=== PATIENT | female | born 1985 | race Caucasian/White ===

== ENCOUNTER 2016-11-23 17:37 | Emergency (ER) | payer SELFPAY ==
[2016-11-23] MEDS ORDERED: Adacel Vial IM ONE ×2 (18:17→19:34)
[2016-11-23] MEDS ORDERED: MOTRIN 600 MG PO ONE (18:21)
[2016-11-23] MEDS ORDERED: MOTRIN 600 MG ONE (18:28)
--- NOTE | 2016-11-23 18:56 | ERPHSYRPT ---
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 NO BLEEDING AT PRESENT. RADIAL PULSE PRESENT. Physician History: CC; left thumb cut hx: 31 y/o healthy patient recently moved here. 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 She has a small piece of skin removed. No other injuries. Needs tetanus. No other injuries. Occurred: just prior to arrival Allergies/Adverse Reactions: acetaminophen [From Vicodin] Allergy (Verified 11/23/16 17:56) hydrocodone [From Vicodin] Allergy (Verified 11/23/16 17:56) promethazine [From Phenergan] Allergy (Verified 11/23/16 17:56) Home Medications: No Home Meds 1 ea UD 11/23/16 [History] Hx Tetanus, Diphtheria Vaccination/Date Given: No Hx Influenza Vaccination/Date Given: No Hx Pneumococcal Vaccination/Date Given: No Immunizations Up to Date: No - Review of Systems Constitutional: No Symptoms Neurological: No Focal Weakness, No Parasthesia - Past Medical History Pertinent Past Medical History: No - Past Surgical History Past Surgical History: Yes Gastrointestinal: Appendectomy, Cholecystectomy Other Surgical History: LIVER BIOPSY. RT FALL TUBE - Social History Smoking Status: Current every day smoker Exposure to second hand smoke: Yes Drug Use: none Patient Lives Alone: No - Female History Hx Last Menstrual Period: 1 WEEK - Nursing Vital Signs Nursing Vital Signs: Initial Vital Signs Temperature 98.5 F Temperature Source Oral Pulse Rate 80 Respiratory Rate 18 Blood Pressure [Right Arm] 116/88 Pain Intensity 9 - Physical Exam General Appearance: alert Eyes, Ears, Nose, Throat Exam: moist mucous membranes Cardiovascular/Respiratory Exam: regular rate/rhythm Neuro/Tendon Exam: normal sensation, normal motor functions Mental Status Exam: alert, oriented x 3, cooperative Skin Exam: warm, dry, other (small superficial skin avulsion left distal thumb < 1cm square with no bony involvement, no FB, and no nail involvement. Some bleeding oozing) - Course Nursing assessment & vital signs reviewed: Yes Ordered Tests: Active Orders 24 hr Category Date Time Status Wound Care STAT Care 11/23/16 18:17 Active Medication Summary Discontinued Medications Generic Name Dose Route Start Last Admin Trade Name Freq PRN Reason Stop Dose Admin Diphtheria/Tetanus/Acell Pertussis 0.5 ml 11/23/16 18:17 11/23/16 18:26 Adacel Vial IM 11/23/16 18:18 0.5 ml .ONCE ONE Administration Ibuprofen 600 mg 11/23/16 18:21 11/23/16 18:33 Motrin 600 Mg PO 11/23/16 18:22 600 mg STAT ONE Administration Ibuprofen Confirm 11/23/16 18:28 Motrin 600 Mg Administered 11/23/16 18:29 Dose 600 mg .ROUTE .STK-MED ONE - Progress Progress Note: 11/23/16 18:53 surgicel gauze placed after cleansing. Wound instr given. Counseled pt/family regarding: diagnosis, need for follow-up - Departure Time of Disposition: 18:54 Departure Disposition: Home Clinical Impression: Avulsion of skin of left thumb Qualifiers: Encounter type: initial encounter Qualified Code(s): S61.002A - Unspecified open wound of left thumb without damage to nail, initial encounter Condition: Stable Critical Care Time: No Referrals: DOCTOR,NO FAMILY [Primary Care Provider] - Instructions: Laceration Repair -- Finger Additional Instructions: LACERATION CARE 1. Do not use peroxide, merthiolate, alcohol, or betadine. 2. Keep wound clean and dry. 3. Change dressing if it becomes wet or soiled. 4. If you must work, wear protective covering. 5. You may return to the emergency department or see your family physician for suture removal. 6. See your family physician or return to the emergency department for any of the following signs or symptoms: A. Redness B. Swelling C. Discolored drainage D. Red streaks E. Elevated temperature F. Other signs of infection Hold pressure for any bleeding. Keep clean and dry.
[2016-11-23 19:12] VITALS: BP 115/70; PULSE 77
== END 2016-11-23 19:05 | disposition home or self-care (01) ==
LOC: ED 17:37
DX: S61.002A Unspecified open wound of left thumb without damage to nail, initial encounter (principal); W26.0XXA Contact with knife, initial encounter; Y93.G1 Activity, food preparation and clean up
CPT/HCPCS: 90471; 90715; 99284; A9270-GY

== ENCOUNTER 2018-06-12 10:24 | Emergency (ER) | payer SELFPAY ==
[2018-06-12 10:55] VITALS: BP 101/75; PULSE 93; O2SAT 98
--- NOTE | 2018-06-12 11:19 | ERPHSYRPT ---
- History of Present Illness Time Seen by Provider: 06/12/18 10:54 Source: patient Exam Limitations: no limitations Patient Subjective Stated Complaint: here for cough and runny nose for a couple. chest pain when cough, vomited x 2 Triage Nursing Assessment: pt alert, resp easy, skin w/d/p. no edema , has dry cough Physician History: Patient arrives with complaint of fever cough chest congestion 2 days pain in the chest with coughing Past medical history negative Past surgical history appendectomy, cholecystectomy, liver biopsy, right fallopian tube removed Social history positive tobacco use Timing/Duration: yesterday Severity: moderate Modifying Factors: Improves With: nothing Associated Symptoms: cough, fever, other (pain in chest with coughin), No nausea , No vomiting, No abdominal pain, No shortness of breath, No heartburn, No diaphoresis, No chills, No chest pain, No headaches, No loss of appetite, No malaise, No rash, No syncope, No seizure, No weakness Allergies/Adverse Reactions: acetaminophen [From Vicodin] Allergy (Verified 06/12/18 10:47) hydrocodone [From Vicodin] Allergy (Verified 06/12/18 10:47) promethazine [From Phenergan] Allergy (Verified 06/12/18 10:47) Home Medications: No Home Meds [No Home Meds] 1 mk BRE 11/23/16 [History] Hx Tetanus, Diphtheria Vaccination/Date Given: No Hx Influenza Vaccination/Date Given: Yes Hx Pneumococcal Vaccination/Date Given: No Immunizations Up to Date: Yes - Review of Systems Constitutional: Fever, No Chills, No Fatigue, No Lethargy, No Malaise, No Night Sweats, No Weakness, No Weight Loss Eyes: No Symptoms Ears, Nose, & Throat: No Symptoms Respiratory: Cough, Other (Pain in chest with couging), No No Symptoms, No Cyanosis, No Dyspnea, No Dyspnea on Exertion (LYNN), No Stridor, No Wheezing Cardiac: Chest Pain (Pain in chest with coughing), No Edema, No Palpitations, No Syncope, No Orthopnea, No PND, No Other Abdominal/Gastrointestinal: No Abdominal Pain, No Nausea, No Vomiting, No Diarrhea, No Constipation, No Hematemesis, No Hematochezia, No Melena, No Dysphagia, No Appetite Changes Genitourinary Symptoms: No Dysuria Musculoskeletal: No Back Pain, No Neck Pain Skin: No Rash Neurological: No Dizziness, No Focal Weakness, No Sensory Changes Psychological: No Symptoms Endocrine: No Symptoms All Other Systems: Reviewed and Negative - Past Medical History Pertinent Past Medical History: No - Past Surgical History Past Surgical History: Yes Gastrointestinal: Appendectomy, Cholecystectomy Other Surgical History: LIVER BIOPSY. RT FALL TUBE - Social History Smoking Status: Current every day smoker Exposure to second hand smoke: Yes Drug Use: none Patient Lives Alone: No - Female History Hx Last Menstrual Period: 2 weks Hx Now: No - Nursing Vital Signs Nursing Vital Signs: Initial Vital Signs Temperature 98.8 F 06/12/18 10:48 Pulse Rate 93 H 06/12/18 10:48 Respiratory Rate 16 06/12/18 10:48 Blood Pressure 101/75 06/12/18 10:48 O2 Sat by Pulse Oximetry 98 06/12/18 10:48 Pain Scale Pain Intensity 7 - Physical Exam General Appearance: mild distress Eye Exam: PERRL/EOMI, eyes nml inspection Ears, Nose, Throat Exam: normal ENT inspection, TMs normal, pharynx normal, moist mucous membranes, pharyngeal erythema Neck Exam: normal inspection, non-tender, supple, full range of motion Respiratory Exam: normal breath sounds, lungs clear, No respiratory distress Cardiovascular Exam: regular rate/rhythm, normal heart sounds, normal peripheral pulses Gastrointestinal/Abdomen Exam: soft, normal bowel sounds, No tenderness, No mass Back Exam: normal inspection, normal range of motion, No CVA tenderness, No vertebral tenderness Extremity Exam: normal inspection, normal range of motion, pelvis stable Neurologic Exam: alert, oriented x 3, cooperative, manager placement II-XII nml as tested, normal mood/affect, nml cerebellar function, nml station & gait, sensation nml, No motor deficits Skin Exam: normal color, warm, dry, No rash SpO2 Interpretation: normal (98%) SpO2: 98 Oxygen Delivery: Room Air - Course Nursing assessment & vital signs reviewed: Yes - Radiology Exams Chest X-ray Interpretation: Discussed w/ radiologist (Chest x-ray: Impression normal heart, lungs, and bony thorax) Ordered Tests: Active Orders 24 hr Category Date Time Status CHEST 1 VIEW (PORTABLE) Stat Exams 06/12/18 10:53 Completed - Progress Progress: improved Progress Note: 06/12/18 11:36 32-year-old white female arrives with complaint of fever cough chest congestion symptoms since yesterday. Patient's chest x-ray is unremarkable. Patient also with the erythematous throat. Will place patient on Zithromax Z-Kahlil. Patient return home plenty of fluids. Diagnosis bronchitis, pharyngitis. - Departure Time of Disposition: 11:37 Departure Disposition: Home Clinical Impression: Bronchitis Pharyngitis Qualifiers: Pharyngitis/tonsillitis etiology: unspecified etiology Qualified Code(s): J02.9 - Acute pharyngitis, unspecified Condition: Fair Critical Care Time: No Referrals: DOCTOR,NO FAMILY [Primary Care Provider] - Instructions: Cough, Adult (DC) Additional Instructions: Return home. Plenty of fluids. Tylenol every 4 hours as needed for temperature greater than 100.5 or pain. Zithromax Z-KAHLIL as directed. Follow-up with your family Dr. symptoms are worse, nobetter. 48 hours, or persist longer than one week. Return for acute distress or for severe symptoms. quit smoking. Prescriptions: Azithromycin 250 mg [Zithromax 250 MG TABLET] 0 mg PO ZPACK #6 tablet
--- NOTE | 2018-06-12 11:22 | XRAY ---
Indication: Cough and congestion. Comparison: None Portable chest demonstrates normal heart, lungs, and bony thorax.
== END 2018-06-12 11:50 | disposition home or self-care (01) ==
LOC: ED 10:24
DX: J40 Bronchitis, not specified as acute or chronic (principal); J02.9 Acute pharyngitis, unspecified
CPT/HCPCS: 71045; 99283

== ENCOUNTER 2020-03-09 12:22 | Day surgery (SDC) | payer OTHER ==
[~2020-03-09 12:22] MED LIST: DIPRIVAN 200 MG/20 ML IV ONE; Ketamine HCl 50 MG/ML ONE
[2020-03-09] MEDS ORDERED: Depo-Medrol 40 MG/ML IM ONE (12:23)
[2020-03-09] MEDS ORDERED: Xylocaine 1% Vial 30 ML PF IJ ONE (12:23)
[2020-03-09] MEDS ORDERED: Sodium Chloride 0.9(Preservative Free) 10 ML IJ ONE (12:23)
[2020-03-09] MEDS ORDERED: TORAdol 30 mg Injection ONE (14:50)
[2020-03-09] MEDS ORDERED: Lactated Ringers 1,000 ML IV ONE (15:52)
--- NOTE | 2020-03-09 16:21 | XRAY ---
Indication: Lumbar ESME. Intraoperative fluoroscopy was provided for 19 seconds. 3 digital spot images submitted for interpretation demonstrates posterior midline needle tip projecting just posterior to the L5 segment superiorly. Small amount of contrast injected for needle tip placement. Correlate with intraoperative findings/report.
--- NOTE | 2020-03-09 16:28 | XRAY ---
19 seconds fluoroscopy time in surgery for lumbar ESME.
== END 2020-03-09 14:59 | disposition home or self-care (01) ==
LOC: SDC-PAIN 12:22
PROVIDERS: ATTEND Psychiatry & Neurology Pain Medicine
DX: M54.16 Radiculopathy, lumbar region (principal); E06.3 Autoimmune thyroiditis; K21.9 Gastro-esophageal reflux disease without esophagitis; Z79.899 Other long term (current) drug therapy
CPT/HCPCS: 62321; 72100; 77003; 84703; J1030; J1885; J2001; J2704; Q9966

== ENCOUNTER 2020-09-19 08:26 | Day surgery (SDC) | payer OTHER ==
[2020-09-19] MEDS ORDERED: Lactated Ringers 1,000 ML IV ONE (08:43)
[2020-09-19 08:47] VITALS: O2SAT 99
[2020-09-19] MEDS: Lactated Ringers 1,000 ML IV SCH (08:49)
--- NOTE | 2020-09-19 08:53 | HP ---
AMENDED REPORT: DATE OF SURGERY: 09/19/2020 HISTORY OF PRESENT ILLNESS: The patient is a 34 year-old had some aches and pains in the tailbone area. There is no obvious pilonidal cyst developing at this time. CT scan reviewed with the patient and not showing anything obvious in question of her tailbone issue. It showed some constipation. No obvious cyst to excise. Dr. Deonte Rubio also saw her and saw no cyst or nodule once again. The best option for the patient with the pain we will consider colonoscopy to rule out any intracolonic referred pain etiology. If negative may need pain specialist. PAST MEDICAL HISTORY: Arthritis. PAST SURGICAL HISTORY: Carpal tunnel release in the past. Appendectomy in the past. Bone graft in the past. MEDICATIONS: Levothyroxine. ALLERGIES: PHENERGAN. ABILIFY. FAMILY HISTORY: Heart disease, cancer. SOCIAL HISTORY: No smoking or alcohol abuse. REVIEW OF SYSTEMS: Fourteen systems reviewed. No chest pain or palpitations. Other systems negative or noncontributory as above and per preadmission questionnaire. PHYSICAL EXAMINATION: GENERAL: No acute distress. HEENT: Sclerae nonicteric. NECK: No JVD. CHEST: Clear to auscultation. CVS: Regular rate and rhythm. ABDOMEN: Soft. No peritoneal signs. EXTREMITIES: No significant edema. NEURO: Alert, oriented, moving extremities symmetrically. : In the pilonidal area there is a vague denser area just above the pilonidal crease but on exam with Dr. Deonte Rubio and myself, this does not appear to be an obvious cyst that is not in need of excision at this point. There is nothing showing up in this area on the CT scan. IMPRESSION: She complains of aches over the tailbone area. Since she is having persistent symptoms, some persistent aches and pains over the tailbone area. The patient given options and prefers to go ahead and proceed with colonoscopy at this point. She was explained the risks and benefits in detail but not limited to bleeding or infection, risk of bowel injury or perforation possibly requiring open procedure, risk of missed or nondiagnosis or incomplete exam possibly requiring barium enema, other studies or procedures, general risk of anesthesia or sedation, risk of bowel prep, postoperative risk of nausea or cramping. There is a real possibility may not be able to differentiate the etiology of her aches and pains. She may still need to see a pain specialist, obtain MRI or other work up or need other specialist. She agreed to the plan, will proceed with outpatient follow up colonoscopy under MAC anesthesia.
[2020-09-19] MEDS ORDERED: DIPRIVAN 200 MG/20 ML IV ONE ×2 (10:13→10:24)
[2020-09-19] MEDS ORDERED: Versed 2 MG/2 ML Injection ONE (10:13)
[2020-09-19 11:26] VITALS: BP 110/78; PULSE 84
--- NOTE | 2020-09-19 13:12 | OP ---
SURGERY DATE/TIME: 09/19/2020 1013 PREOPERATIVE DIAGNOSIS: History of persistent deep pilonidal area pain with fairly unremarkable CT scan and physical exam, need for colonoscopy to rule out colorectal etiology with referred pain. POSTOPERATIVE DIAGNOSES: 1) ASA Class II. 2) Fair bowel prep. 3) Few small diverticula. 4) Minimal internal hemorrhoids. 5) Fair bowel prep. 6) Withdrawal time 8 minutes. PROCEDURES: 1) Colonoscopy to terminal ileum. 2) Retrograde ileoscopy. 3) Random ileocolon and rectal biopsy to evaluate for microscopic ileitis, microscopic colitis or microscopic proctitis. SURGEON: Dr. Juan R Mina. ANESTHESIA: MAC. ESTIMATED BLOOD LOSS: Minimal. INDICATIONS: As noted above. Risks and benefits explained in detail but not limited to and consent obtained. DESCRIPTION OF PROCEDURE AND FINDINGS: The patient is taken to the operating room. MAC anesthesia introduced. After official time out and no disagreement with planned procedure, digital rectal exam did not reveal any rectal masses. He did have some minimal internal hemorrhoids. Video colonoscope inserted and passed up through the slightly tortuous sigmoid, descending, transverse and ascending colon with external pressure around to the cecum. Appendiceal orifice and valve well visualized. Valve was photo documented. The scope was passed up the terminal ileum which also pictures were taken. There was no gross evidence of any macroscopic Crohn's or inflammation. Random cold biopsies were taken to evaluate for microscopic ileitis. The scope was then carefully withdrawn over the next eight minutes. ASA Class II. The prep was fair. The scope was withdrawn over the next eight minutes taking some random biopsies in the colon and also in the rectum to evaluate for microscopic colitis or proctitis. There were no signs of any macroscopic inflammatory changes. No signs of any large polyps, masses or obstructing lesions. Otherwise, she had a few tiny diverticula. No signs of any large polyps, masses or obstructing lesions. No signs of any obvious macroscopic inflammation or lesion to account for the patient's aches and pains. Good hemostasis noted. The scope is withdrawn. She had some minimal internal hemorrhoids. On digital exam there were no obvious palpable areas on the outside or on the inside, rectal side of the sacrococcygeal area. If she had persistent pain she may need referred to pain specialist or get orthopedic opinion.
== END 2020-09-19 11:20 | disposition home or self-care (01) ==
LOC: SDC 08:26
PROVIDERS: ATTEND Surgery
DX: K57.30 Diverticulosis of large intestine without perforation or abscess without bleeding (principal); K64.8 Other hemorrhoids
CPT/HCPCS: 84703; J2250; J2704

== ENCOUNTER 2021-08-15 15:13 | Emergency (ER) | payer OTHER ==
--- NOTE | 2021-08-15 15:59 | ERPHSYRPT ---
- History of Present Illness Time Seen by Provider: 08/15/21 16:40 Source: patient Exam Limitations: no limitations Patient Subjective Stated Complaint: Pt states that she has pain in her left side of neck and under her left arm which she states she has when she has an eto pic and she has had 7 of them and has had to have her right tube removed, pulses normal, skin n/w/d Triage Nursing Assessment: Pt came to the ER with c/o of left neck pain and back shoulder pain, rates pain as 7/10, hx of 7 ectopic pregnancies, hx of same pain during other ectopic pregnancies, bloody discharge, 2 uteruses and 2 cervixes, Physician History: Patient is a 35-year-old female presents to our ED with complaints of left arm and left neck pain. Patient states that pain at these locations is attributed to an ectopic . Patient states she has had 7 ectopic pregnancies in her lifetime. Patient believes she has another one. Patient is LMP is June 30, 2021. Patient states she had a right tube removed. Ectopic would be on the left. Patient states she has 2 uterus is. To cervixes. Patient denies pelvic pain. No vaginal discharge. No foul odors. Patient has been sexually active. Patient does not think she has a STI. Symptoms are mild to moderate in intensity. No specific worsening improving factors. Patient voices no other complaints or concerns at this time. Symptoms started 1 day ago. Timing/Duration: yesterday Severity: moderate Modifying Factors: Improves With: nothing Associated Symptoms: denies symptoms Allergies/Adverse Reactions: aripiprazole [From Abilify] Allergy (Severe, Verified 08/15/21 15:49) cross eye promethazine [From Phenergan] Allergy (Severe, Verified 08/15/21 15:49) Itching Home Medications: Hydrocodone/Acetaminophen [Hydrocodone-Acetamin 5-325 mg] 1 tab PO Q46H PRN 08/15/21 [History] Zonisamide 100 mg PO DAILY 08/15/21 [History] Hx Tetanus, Diphtheria Vaccination/Date Given: No Hx Influenza Vaccination/Date Given: Yes Hx Pneumococcal Vaccination/Date Given: No Travel Risk - International Travel Have you traveled outside of the country in past 3 weeks: No - Coronavirus Screening Are you exhibiting any of the following symptoms?: No Close contact with a COVID-19 positive Pt in past 14-21 Days: No - Vaccine Status Have you recieved a Covid-19 vaccination: No - Review of Systems Constitutional: No Symptoms, No Fever, No Chills Eyes: No Symptoms Ears, Nose, & Throat: No Symptoms Respiratory: No Symptoms, No Cough, No Dyspnea Cardiac: No Symptoms, No Chest Pain, No Edema, No Syncope Abdominal/Gastrointestinal: No Symptoms, No Abdominal Pain, No Nausea, No Vomiting, No Diarrhea Genitourinary Symptoms: No Symptoms, No Dysuria Musculoskeletal: No Symptoms, No Back Pain, No Neck Pain Skin: No Symptoms, No Rash Neurological: No Symptoms, No Dizziness, No Focal Weakness, No Sensory Changes Psychological: No Symptoms Endocrine: No Symptoms Hematologic/Lymphatic: No Symptoms Immunological/Allergic: No Symptoms All Other Systems: Reviewed and Negative - Past Medical History Pertinent Past Medical History: Yes Neurological History: No Pertinent History ENT History: No Pertinent History Cardiac History: No Pertinent History Respiratory History: No Pertinent History Endocrine Medical History: Hypothyroidism Musculoskeletal History: Osteoarthritis GI Medical History: No Pertinent History History: No Pertinent History Psycho-Social History: No Pertinent History Female Reproductive Disorders: No Pertinent History Other Medical History: L WRIST FX W/ SX. - Past Surgical History Past Surgical History: Yes Neuro Surgical History: No Pertinent History Cardiac: No Pertinent History Respiratory: No Pertinent History Gastrointestinal: Appendectomy, Cholecystectomy Genitourinary: No Pertinent History Musculoskeletal: No Pertinent History Female Surgical History: No Pertinent History Other Surgical History: Right tube removed. carpal tunnel release. bone graft. mole removed - Social History Smoking Status: Former smoker Exposure to second hand smoke: No Drug Use: none Patient Lives Alone: No - Female History Hx Last Menstrual Period: 06/21/2021 Hx Now: Yes - Nursing Vital Signs Nursing Vital Signs: Initial Vital Signs Temperature 98.9 F 08/15/21 16:32 Pulse Rate 100 H 08/15/21 16:32 Blood Pressure 132/84 08/15/21 16:32 O2 Sat by Pulse Oximetry 100 08/15/21 16:32 Pain Scale Pain Intensity [] 7 Pain Intensity 7 - Physical Exam General Appearance: no apparent distress, alert Eye Exam: PERRL/EOMI, eyes nml inspection Ears, Nose, Throat Exam: normal ENT inspection, TMs normal, pharynx normal, moist mucous membranes Neck Exam: normal inspection, non-tender, supple, full range of motion Respiratory Exam: normal breath sounds, lungs clear, airway intact, No respira tory distress Cardiovascular Exam: regular rate/rhythm, normal heart sounds, normal peripheral pulses Gastrointestinal/Abdomen Exam: soft, normal bowel sounds, No tenderness, No mass Pelvic Exam: normal external exam, other (Two cervix is palpated. ), No adnexal mass, No cervical motion tenderness, No vaginal bleeding Back Exam: normal inspection, normal range of motion, No CVA tenderness, No vertebral tenderness Extremity Exam: normal inspection, normal range of motion, pelvis stable Neurologic Exam: alert, oriented x 3, cooperative, normal mood/affect, nml cerebellar function, nml station & gait, sensation nml, No motor deficits Skin Exam: normal color, warm, dry, No rash Lymphatic Exam: No adenopathy SpO2 Interpretation: normal O2 Delivery: Room Air - Course Nursing assessment & vital signs reviewed: Yes EKG Interpreted by Me: RATE (92), Sinus Rhythm, NORMAL AXIS, NORMAL INTERVALS - Radiology Ultrasound Exam OB Ultrasound: tele radiology report (Again thickened and low vitreal stripe with new tiny endometrial fluid. Negative for intrauterine ectopic . Continued enlarging uterine fibroid. Tiny physiologic cul-de-sac fluid.) Ordered Tests: Active Orders 24 hr Category Date Time Status EKG-ER Only STAT Care 08/15/21 15:52 Completed OB <14 WKS 1ST GESTATION [US] Stat Exams 08/15/21 16:30 Completed CBC W DIFF Stat Lab 08/15/21 18:08 Ordered CMP Stat Lab 08/15/21 18:08 Ordered HCG, Quantitative (Inhouse) Stat Lab 08/15/21 16:30 Completed TROPONIN Q3H Lab 08/15/21 16:30 Completed TROPONIN Q3H Lab 08/15/21 19:00 Ordered TROPONIN Q3H Lab 08/15/21 22:00 Ordered UA W/RFX UR CULTURE Stat Lab 08/15/21 16:45 Completed Wet Prep Stat Lab 08/15/21 15:38 Ordered Lab/Rad Data: Laboratory Results 08/15/21 08/15/21 08/15/21 Range/Units 17:30 16:45 16:30 Troponin I < 0.012 (0.000-0.034) ng/mL Beta HCG, Quant mIU/ml Urine Color YELLOW (YELLOW) Urine Appearance CLEAR (CLEAR) Urine pH 7.0 (5-6) Ur Specific [place] 1.017 (1.005-1.025) Urine Protein NEGATIVE (Negative) Urine Ketones NEGATIVE (NEGATIVE) Urine Blood NEGATIVE (0-5) Rohan/ul Urine Nitrite NEGATIVE (NEGATIVE) Urine Bilirubin NEGATIVE (NEGATIVE) Urine Urobilinogen NEGATIVE (0-1) mg/dL Ur Leukocyte Esterase NEGATIVE (NEGATIVE) Urine WBC (Auto) NONE (0-5) /HPF Urine RBC (Auto) NONE SEEN (0-2) /HPF U Epithel Cells (Auto) NONE (FEW) /HPF Urine Bacteria (Auto) NONE SEEN (NEGATIVE) /HPF Urine Mucus (Auto) SLIGHT (NEGATIVE) /HPF Urine Culture Reflexed NO (NO) Urine Glucose NEGATIVE (NEGATIVE) mg/dL Chlamydia DNA Probe NOT DETECTED (NEGATIVE) N.gonorrhoeae DNA Probe NOT DETECTED (NEGATIVE) 08/15/21 Range/Units 16:30 Troponin I (0.000-0.034) ng/mL Beta HCG, Quant 71.79 mIU/ml Urine Color (YELLOW) Urine Appearance (CLEAR) Urine pH (5-6) Ur Specific [place] (1.005-1.025) Urine Protein (Negative) Urine Ketones (NEGATIVE) Urine Blood (0-5) Rohan/ul Urine Nitrite (NEGATIVE) Urine Bilirubin (NEGATIVE) Urine Urobilinogen (0-1) mg/dL Ur Leukocyte Esterase (NEGATIVE) Urine WBC (Auto) (0-5) /HPF Urine RBC (Auto) (0-2) /HPF U Epithel Cells (Auto) (FEW) /HPF Urine Bacteria (Auto) (NEGATIVE) /HPF Urine Mucus (Auto) (NEGATIVE) /HPF Urine Culture Reflexed (NO) Urine Glucose (NEGATIVE) mg/dL Chlamydia DNA Probe (NEGATIVE) N.gonorrhoeae DNA Probe (NEGATIVE) - Progress Progress: improved Progress Note: We called Dr. Magaña to inform him that his patient was in our ED however he did not steel pickler his phone. A message was left by our telecommunications switch technician. Patient did not want to wait for him to return call so she requested to be discharged. Beta hCG is very low. This is possibly due to a miscarriage. However she will require repeat hCG. A prescription for repeat hCG in 48 hours was provided to patient. Results will be sent to Dr. Magaña 08/15/21 18:04 Counseled pt/family regarding: lab results, diagnosis, need for follow-up, rad results - Departure Departure Disposition: Home Clinical Impression: Neck pain, Arm pain Condition: Stable Critical Care Time: No Referrals: DOROTA WARNER DO [Primary Care Provider] - Follow up/PCP as directed GREGORIA MAGAÑA DO [ACTIVE STAFF] - Follow up/PCP as directed Instructions: Generalized Neck Pain (DC) Additional Instructions: have labs drawn in 48 hours
[2021-08-15 16:33] VITALS: BP 132/84; PULSE 100; O2SAT 100
--- NOTE | 2021-08-15 16:57 | XRAY ---
Indication: Ectopic . History uterine didelphys. Two-dimensional transvaginal early OB ultrasound performed. Comparison: None. There is a pelvic sonogram April 26, 2021. Uterus again anteverted measuring 8.8 x 4.6 x 4.7 cm. The remains heterogeneous myometrium again with slightly enlarging 6.5 x 4.9 x 5.1 cm posterior subserosal fibroid. This previously measured 5.3 x 3.5 x 5.1 cm. Endometrial stripe remains thickened measuring 1.6 cm, previously 2 cm. New tiny endometrial cavity fluid. No intrauterine gestational sac, pole, or heart tones. Right ovary measures 2.1 x 1.6 x 2.7 cm and the left measures 4.1 x 1.9 x 3.3 cm. Normal perfusion bilaterally. No suspicious adnexal mass or ectopic . Tiny cul-de-sac fluid presumed physiologic from rupture/leaking cyst. Impression: 1. Again thickened endometrial stripe with new tiny endometrial fluid. 2. Negative for intrauterine/ectopic . 3. Continued enlarging uterine fibroid. 4. Tiny physiologic cul-de-sac fluid.
[2021-08-15 17:06] LABS: Appearance CLEAR (CLEAR); Bilirubin NEGATIVE (NEGATIVE); Blood NEGATIVE Ery/ul (0-5); Glucose NEGATIVE (NEGATIVE); Ketones NEGATIVE (NEGATIVE); Leukocyte Esterase NEGATIVE (NEGATIVE); Mucus SLIGHT /HPF (NEGATIVE); Nitrite NEGATIVE (NEGATIVE); Protein,Urine Dip NEGATIVE (Negative); Specific Gravity 1.017 (1.005-1.025); Urobilinogen NEGATIVE mg/dL (0-1)
[2021-08-15 17:37] LABS: Bacteria NONE SEEN /HPF (NEGATIVE); RBC NONE SEEN /HPF (0-2)
[2021-08-15 17:42] LABS: CHLAMYDIA DNA NOT DETECTED (NEGATIVE); GC DNA Probe NOT DETECTED (NEGATIVE)
[2021-08-15 18:30] LABS: ALBUMIN 4.3 g/dL (3.5-5.0); ALKALINE PHOSPHATASE 47 U/L (38-126); ANION GAP 14.4 MEQ/L (5-15); BLOOD UREA NITROGEN 11 mg/dL (7-17); CHLORIDE 106 mmol/L (98-107); Calcium 9.3 mg/dL (8.4-10.2); Carbon Dioxide 23 mmol/L (22-30); Creatinine 1 0.74 mg/dL (0.52-1.04); EST GLOMERULAR FILTRATION RATE > 60.0 ML/MIN; Glucose 96 mg/dL (74-106); Potassium 3.8 mmol/L (3.5-5.1); SGOT/AST 22 U/L (14-36); SGPT/ALT 8 U/L (0-35); SODIUM 139 mmol/L (137-145); Total Protein 7.1 g/dL (6.3-8.2)
[2021-08-15 18:35] LABS: Absolute Neutrophil Ct (ANC) 5.23 (1.4-6.9); Basophil (Absolute #) 0.02 (0-0.4); Eosinophil % 0.4 % (0.00-5.0); Eosinophil (Absolute #) 0.03 (0-0.5); Hematocrit 31.6 % (35-47); Hemoglobin 9.8 gm/dl (12.0-16.0); Lymphocyte (Absolute #) 1.26 (1.0-4.6); Mean Cell Volume 80.2 fl (78-100); Mean Corpuscular Hemoglobin 24.9 pg (26-32); Mean Platelet Volume 10.7 fl (7.5-11.0); Monocyte (Absolute #) 0.47 (0.0-1.3); Monocytes % 6.7 % (0.0-12.0); Neutrophil % 74.6 % (36.0-66.0); Platelet Count 332 K/mm3 (150-450); Red Blood Count 3.94 M/mm3 (4.1-5.4); Red Cell Distribution Width 17.7 % (11.5-14.0)
== END 2021-08-15 18:09 | disposition home or self-care (01) ==
LOC: ED 15:13
DX: M54.2 Cervicalgia (principal); M79.622 Pain in left upper arm; Z79.891 Long term (current) use of opiate analgesic; Z79.899 Other long term (current) drug therapy
CPT/HCPCS: 36415; 76801; 80053; 81001; 84144; 84484; 84702; 85025; 87491; 87591; 93005; 99284

== ENCOUNTER 2021-08-22 12:44 | Emergency (ER) | payer OTHER ==
[2021-08-22] MEDS ORDERED: Sodium Chloride 0.9% 1000 ML 1,000 ML IV SCH (13:15)
--- NOTE | 2021-08-22 13:23 | ERPHSYRPT ---
- History of Present Illness Time Seen by Provider: 08/22/21 12:55 Source: patient Exam Limitations: no limitations Patient Subjective Stated Complaint: Bleeding in Triage Nursing Assessment: Patient ambulated back to ED and transferred self to bed. Patient A+O X3. Patient's skin pink, warm and dry. Patient complains bleeding in . Patient states two weeks ago she had a positive test. Patient complains of bleeding that started 3 days ago. Patient denies pain or discomfort. Physician History: Patient is a 35-year-old female presents to our ED with complaints of vaginal bleeding for 3 days. Patient states that she had a positive test approximately 2 weeks ago. She has had subsequent hCGs performed that has been increasing in number. Patient advised that she has 2 uterus. She also has 2 cervixes. Patient has a history of ectopic pregnancies. 7 ectopic pregnancies in total. Patient's right ovary has been removed. Patient's vaginal bleeding is not associated with pain. No trauma. No fever. Symptoms are minimal. No specific worsening improving factors. Patient voices no other complaints or concerns at this time. Timing/Duration: day(s) (3 days) Severity: mild Modifying Factors: Improves With: nothing Associated Symptoms: denies symptoms Allergies/Adverse Reactions: aripiprazole [From Abilify] Allergy (Severe, Verified 08/22/21 12:50) cross eye promethazine [From Phenergan] Allergy (Severe, Verified 08/22/21 12:50) Itching Home Medications: No Reportable Medications [No Reported Medications] 08/22/21 [History] Hx Tetanus, Diphtheria Vaccination/Date Given: No Hx Influenza Vaccination/Date Given: No Hx Pneumococcal Vaccination/Date Given: No Immunizations Up to Date: Yes Travel Risk - International Travel Have you traveled outside of the country in past 3 weeks: No - Coronavirus Screening Are you exhibiting any of the following symptoms?: No Close contact with a COVID-19 positive Pt in past 14-21 Days: No - Vaccine Status Have you recieved a Covid-19 vaccination: No - Review of Systems Constitutional: No Symptoms, No Fever, No Chills Eyes: No Symptoms Ears, Nose, & Throat: No Symptoms Respiratory: No Symptoms, No Cough, No Dyspnea Cardiac: No Symptoms, No Chest Pain, No Edema, No Syncope Abdominal/Gastrointestinal: No Symptoms, No Abdominal Pain, No Nausea, No Vomiting, No Diarrhea Genitourinary Symptoms: No Symptoms, No Dysuria Musculoskeletal: No Symptoms, No Back Pain, No Neck Pain Skin: No Symptoms, No Rash Neurological: No Symptoms, No Dizziness, No Focal Weakness, No Sensory Changes Psychological: No Symptoms Endocrine: No Symptoms Hematologic/Lymphatic: No Symptoms Immunological/Allergic: No Symptoms All Other Systems: Reviewed and Negative - Past Medical History Pertinent Past Medical History: Yes Neurological History: No Pertinent History ENT History: No Pertinent History Cardiac History: No Pertinent History Respiratory History: No Pertinent History Endocrine Medical History: Hypothyroidism Musculoskeletal History: Osteoarthritis GI Medical History: No Pertinent History History: No Pertinent History Psycho-Social History: No Pertinent History Female Reproductive Disorders: No Pertinent History Other Medical History: L WRIST FX W/ SX. - Past Surgical History Past Surgical History: Yes Neuro Surgical History: No Pertinent History Cardiac: No Pertinent History Respiratory: No Pertinent History Gastrointestinal: Appendectomy, Cholecystectomy Genitourinary: No Pertinent History Musculoskeletal: No Pertinent History Female Surgical History: No Pertinent History Other Surgical History: Right tube removed. carpal tunnel release. bone graft. mole removed - Social History Smoking Status: Former smoker Exposure to second hand smoke: No Drug Use: none Patient Lives Alone: No - Female History Hx Last Menstrual Period: 07/20/2021 Hx Now: Yes - Nursing Vital Signs Nursing Vital Signs: Initial Vital Signs Temperature 98.3 F 08/22/21 12:51 Pulse Rate 98 H 08/22/21 12:51 Respiratory Rate 18 08/22/21 12:51 O2 Sat by Pulse Oximetry 100 08/22/21 12:51 Pain Scale Pain Intensity 0 - Physical Exam General Appearance: no apparent distress, alert Eye Exam: PERRL/EOMI, eyes nml inspection Ears, Nose, Throat Exam: normal ENT inspection, TMs normal, pharynx normal, moist mucous membranes Neck Exam: normal inspection, non-tender, supple, full range of motion Respiratory Exam: normal breath sounds, lungs clear, airway intact, No chest tenderness, No respiratory distress Cardiovascular Exam: regular rate/rhythm, normal heart sounds, normal peripheral pulses Gastrointestinal/Abdomen Exam: soft, normal bowel sounds, No tenderness, No mass Back Exam: normal inspection, normal range of motion, No CVA tenderness, No vertebral tenderness Extremity Exam: normal inspection, normal range of motion, pelvis stable Neurologic Exam: alert, oriented x 3, cooperative, normal mood/affect, nml cerebellar function, nml station & gait, sensation nml, No motor deficits Skin Exam: normal color, warm, dry, No rash Lymphatic Exam: No adenopathy SpO2 Interpretation: normal SpO2: 100 O2 Delivery: Room Air - Course Nursing assessment & vital signs reviewed: Yes - Radiology Ultrasound Exam OB Ultrasound: tele radiology report (Endometrial stripe measures 2.2 cm. Sliver of endometrial fluid observed. No pole or heart tones observed due to early age of gestation) Ordered Tests: Active Orders 24 hr Category Date Time Status OB TRANSVAGINAL [US] Stat Exams 08/22/21 13:07 Completed CBC W DIFF Stat Lab 08/22/21 13:35 Completed CMP Stat Lab 08/22/21 13:35 Completed HCG, Quantitative (Inhouse) Stat Lab 08/22/21 13:35 Completed UA W/RFX UR CULTURE Stat Lab 08/22/21 13:09 Completed Medication Summary Discontinued Medications Generic Name Dose Route Start Last Admin Trade Name Freq PRN Reason Stop Dose Admin Sodium Chloride 1,000 mls @ 100 mls/hr 08/22/21 13:15 08/22/21 13:15 Sodium Chloride 0.9% 1000 Ml IV 09/21/21 13:14 Not Given .Q10H KHLOE Lab/Rad Data: Laboratory Result Diagrams 08/22/21 13:35 08/22/21 13:35 Laboratory Results 08/22/21 08/22/21 08/22/21 Range/Units 13:35 13:35 13:35 WBC (4.0-10.5) K/mm3 RBC (4.1-5.4) M/mm3 Hgb (12.0-16.0) gm/dl Hct (35-47) % MCV (78-100) fl MCH (26-32) pg MCHC (32-36) g/dl RDW (11.5-14.0) % Plt Count (150-450) K/mm3 MPV (7.5-11.0) fl Gran % (36.0-66.0) % Eos # (Auto) (0-0.5) Absolute Lymphs (auto) (1.0-4.6) Absolute Monos (auto) (0.0-1.3) Lymphocytes % (24.0-44.0) % Monocytes % (0.0-12.0) % Eosinophils % (0.00-5.0) % Basophils % (0.0-0.4) % Absolute Granulocytes (1.4-6.9) Basophils # (0-0.4) Sodium 136 L (137-145) mmol/L Potassium 3.9 (3.5-5.1) mmol/L Chloride 102 (98-107) mmol/L Carbon Dioxide 24 (22-30) mmol/L Anion Gap 13.6 (5-15) MEQ/L BUN 10 (7-17) mg/dL Creatinine 0.96 (0.52-1.04) mg/dL Estimated GFR > 60.0 ML/MIN Glucose 81 (74-106) mg/dL Calcium 8.8 (8.4-10.2) mg/dL Total Bilirubin 0.40 (0.2-1.3) mg/dL AST 21 (14-36) U/L ALT 8 (0-35) U/L Alkaline Phosphatase 52 (38-126) U/L Serum Total Protein 7.0 (6.3-8.2) g/dL Albumin 4.3 (3.5-5.0) g/dL Beta HCG, Quant 896.55 mIU/ml Urine Color (YELLOW) Urine Appearance (CLEAR) Urine pH (5-6) Ur Specific [place] (1.005-1.025) Urine Protein (Negative) Urine Ketones (NEGATIVE) Urine Blood (0-5) Rohan/ul Urine Nitrite (NEGATIVE) Urine Bilirubin (NEGATIVE) Urine Urobilinogen (0-1) mg/dL Ur Leukocyte Esterase (NEGATIVE) Urine WBC (Auto) (0-5) /HPF Urine RBC (Auto) (0-2) /HPF U Epithel Cells (Auto) (FEW) /HPF Urine Bacteria (Auto) (NEGATIVE) /HPF Urine Mucus (Auto) (NEGATIVE) /HPF Urine Culture Reflexed (NO) Urine Glucose (NEGATIVE) mg/dL ABO Group A Rh Factor POSITIVE Antibody Screen NEGATIVE (NEGATIVE) 08/22/21 08/22/21 Range/Units 13:35 13:09 WBC 6.9 (4.0-10.5) K/mm3 RBC 4.02 L (4.1-5.4) M/mm3 Hgb 10.1 L (12.0-16.0) gm/dl Hct 32.5 L (35-47) % MCV 80.8 (78-100) fl MCH 25.1 L (26-32) pg MCHC 31.1 L (32-36) g/dl RDW 17.0 H (11.5-14.0) % Plt Count 341 (150-450) K/mm3 MPV 9.5 (7.5-11.0) fl Gran % 69.6 H (36.0-66.0) % Eos # (Auto) 0.06 (0-0.5) Absolute Lymphs (auto) 1.45 (1.0-4.6) Absolute Monos (auto) 0.55 (0.0-1.3) Lymphocytes % 21.1 L (24.0-44.0) % Monocytes % 8.0 (0.0-12.0) % Eosinophils % 0.9 (0.00-5.0) % Basophils % 0.4 (0.0-0.4) % Absolute Granulocytes 4.77 (1.4-6.9) Basophils # 0.03 (0-0.4) Sodium (137-145) mmol/L Potassium (3.5-5.1) mmol/L Chloride (98-107) mmol/L Carbon Dioxide (22-30) mmol/L Anion Gap (5-15) MEQ/L BUN (7-17) mg/dL Creatinine (0.52-1.04) mg/dL Estimated GFR ML/MIN Glucose (74-106) mg/dL Calcium (8.4-10.2) mg/dL Total Bilirubin (0.2-1.3) mg/dL AST (14-36) U/L ALT (0-35) U/L Alkaline Phosphatase (38-126) U/L Serum Total Protein (6.3-8.2) g/dL Albumin (3.5-5.0) g/dL Beta HCG, Quant mIU/ml Urine Color YELLOW (YELLOW) Urine Appearance SLIGHTLY CLOUDY (CLEAR) Urine pH 5.0 (5-6) Ur Specific [place] 1.018 (1.005-1.025) Urine Protein NEGATIVE (Negative) Urine Ketones NEGATIVE (NEGATIVE) Urine Blood LARGE (0-5) Rohan/ul Urine Nitrite NEGATIVE (NEGATIVE) Urine Bilirubin NEGATIVE (NEGATIVE) Urine Urobilinogen NEGATIVE (0-1) mg/dL Ur Leukocyte Esterase NEGATIVE (NEGATIVE) Urine WBC (Auto) 0-2 (0-5) /HPF Urine RBC (Auto) 0-2 (0-2) /HPF U Epithel Cells (Auto) RARE (FEW) /HPF Urine Bacteria (Auto) NONE (NEGATIVE) /HPF Urine Mucus (Auto) SLIGHT (NEGATIVE) /HPF Urine Culture Reflexed NO (NO) Urine Glucose NEGATIVE (NEGATIVE) mg/dL ABO Group Rh Factor Antibody Screen (NEGATIVE) - Progress Progress: improved Progress Note: Patient is Rh+. No indication for RhoGam. Vaginal bleeding. Patient hemodynamically stable. Blood observed in urine however this is likely from vaginal bleeding. Normocytic anemia observed. 08/22/21 14:41 hCG is 896. Patient assessed with RN in room. No active vaginal bleeding. Vaginal bleeding has resolved. Dr. Magaña updated. Patient agrees to follow-up with Dr. Magaña within 48 hours for evaluation. Portions of this note were created with voice recognition technology. There may be grammatical, spelling, punctuation or sound alike errors 08/22/21 15:[address] Karoline Will see patient in: office Counseled pt/family regarding: lab results, diagnosis, need for follow-up, rad results - Departure Departure Disposition: Home Clinical Impression: Normocytic anemia, Uterine fibroid, Threatened , Vaginal bleeding Condition: Stable Critical Care Time: No Referrals: DOROTA WARNER, [Primary Care Provider] - Follow up/PCP as directed Additional Instructions: Discharge/Care Plan JOSHUA LLANES was seen on 08/22/21 in the Emergency Room. The patient was counseled regarding Diagnosis,Lab results, Imaging studies, need for follow up and when to return to the Emergency Room. Prescriptions given: Discharge Note I have spoken with the patient and/or caregivers. I have explained the patient's condition, diagnosis and treatment plan based on the information available to me at this time. I have answered the patient's and/or caregiver's questions and addressed any concerns. The patient and/or caregivers have as good understanding of the patient's diagnosis, condition and treatment plan as can be expected at this point. The vital signs have been stable. The patient's condition is stable and appropriate for discharge from the emergency department. The patient will pursue further outpatient evaluation with the primary care physician or other designated or consulting physician as outlined in the discharge instructions. The patient and/or caregivers are agreeable to this plan of care and follow-up instructions have been explained in detail. The patient and/or caregivers have received these instruction. The patient/and or caregivers are aware that any significant change in condition or worsening of symptoms should prompt an immediate return to this or the closest emergency department or call 911.
[2021-08-22 13:48] LABS: Absolute Neutrophil Ct (ANC) 4.77 (1.4-6.9); Basophil (Absolute #) 0.03 (0-0.4); Eosinophil % 0.9 % (0.00-5.0); Eosinophil (Absolute #) 0.06 (0-0.5); Hematocrit 32.5 % (35-47); Hemoglobin 10.1 gm/dl (12.0-16.0); Lymphocyte (Absolute #) 1.45 (1.0-4.6); Lymphocytes % 21.1 % (24.0-44.0); Mean Cell Volume 80.8 fl (78-100); Mean Corpuscular Hemoglobin 25.1 pg (26-32); Mean Corpuscular Hgb Concent. 31.1 g/dl (32-36); Mean Platelet Volume 9.5 fl (7.5-11.0); Monocyte (Absolute #) 0.55 (0.0-1.3); Neutrophil % 69.6 % (36.0-66.0); Platelet Count 341 K/mm3 (150-450); Red Blood Count 4.02 M/mm3 (4.1-5.4); White Blood Count 6.9 K/mm3 (4.0-10.5)
[2021-08-22 13:53] LABS: Appearance SLIGHTLY CLOUDY (CLEAR); Bilirubin NEGATIVE (NEGATIVE); Blood LARGE Ery/ul (0-5); Epithelial Cells RARE /HPF (FEW); Glucose NEGATIVE (NEGATIVE); Ketones NEGATIVE (NEGATIVE); Leukocyte Esterase NEGATIVE (NEGATIVE); Mucus SLIGHT /HPF (NEGATIVE); Nitrite NEGATIVE (NEGATIVE); Protein,Urine Dip NEGATIVE (Negative); RBC 0-2 /HPF (0-2); Specific Gravity 1.018 (1.005-1.025); Urobilinogen NEGATIVE mg/dL (0-1); WBC 0-2 /HPF (0-5)
[2021-08-22 14:12] LABS: ALBUMIN 4.3 g/dL (3.5-5.0); ALKALINE PHOSPHATASE 52 U/L (38-126); ANION GAP 13.6 MEQ/L (5-15); BLOOD UREA NITROGEN 10 mg/dL (7-17); CHLORIDE 102 mmol/L (98-107); Calcium 8.8 mg/dL (8.4-10.2); Carbon Dioxide 24 mmol/L (22-30); Creatinine 1 0.96 mg/dL (0.52-1.04); EST GLOMERULAR FILTRATION RATE > 60.0 ML/MIN; Glucose 81 mg/dL (74-106); Potassium 3.9 mmol/L (3.5-5.1); SGOT/AST 21 U/L (14-36); SGPT/ALT 8 U/L (0-35); SODIUM 136 mmol/L (137-145)
[2021-08-22 14:38] LABS: ABO TYPING A; Antibody Screen NEGATIVE (NEGATIVE); RH TYPING POSITIVE
--- NOTE | 2021-08-22 14:42 | XRAY ---
Indication: Bleeding. Beta-hCG 708. Two-dimensional transvaginal pelvic sonogram performed. Comparison: August 15, 2021. Uterus again anteverted with large posterior subserosal fibroid. Endometrial stripe remains thickened up to 2.2 cm. Fundus again demonstrates tiny sliver of endometrial fluid collection. Again no pole or heart tones. Neither ovaries are visualized. No suspicious adnexal mass or free fluid. Impression: Grossly stable thickened endometrial stripe with tiny sliver endometrial fluid collection near the fundus. Continued negative for intrauterine/ectopic . Stable large uterine fibroid.
[2021-08-22 16:08] VITALS: PULSE 89; O2SAT 98
== END 2021-08-22 16:08 | disposition home or self-care (01) ==
LOC: ED 12:44
DX: O20.0 Threatened abortion (principal); O20.9 Hemorrhage in early pregnancy, unspecified; D25.9 Leiomyoma of uterus, unspecified; D64.9 Anemia, unspecified; Q51.10 Doubling of uterus with doubling of cervix and vagina without obstruction
CPT/HCPCS: 36415; 76817; 80053; 81001; 84702; 85025; 86850; 86900; 86901; 99283

== ENCOUNTER 2021-08-29 08:03 | Day surgery (SDC) | payer OTHER ==
[2021-08-29] MEDS ORDERED: Lactated Ringers 1,000 ML IV ONE (08:31)
[2021-08-29] MEDS ORDERED: Lactated Ringers 1,000 ML IV SCH (09:00)
== END 2021-08-29 09:00 | disposition home or self-care (01) ==
LOC: SDC 08:03
PROVIDERS: ATTEND Obstetrics & Gynecology
DX: Z53.29 Procedure and treatment not carried out because of patient's decision for other reasons (principal)